=== PATIENT | female | born 1985 | race Hispanic/Latino ===

== ENCOUNTER → 2022-10-05 | Outpatient (CLI) | payer BC | END | disposition home or self-care (01) | LOC: SHCH 08:49 → EDUNIT# 09:00 | PROVIDERS: ATTEND Internal Medicine Cardiovascular Disease | DX: I08.1 Rheumatic disorders of both mitral and tricuspid valves (principal); I48.0 Paroxysmal atrial fibrillation; Z79.01 Long term (current) use of anticoagulants | CPT/HCPCS: 93306 ==

== ENCOUNTER 2022-10-17 07:28 | Day surgery (SDC) | payer BC ==
[2022-10-15 15:21] LABS: BASOPHILS % (AUTO) 0.4 % (0.0-5.0); EOSINOPHILS % (AUTO) 3.4 % (0.0-8.0); HEMATOCRIT 39.2 % (36-48); LYMPHOCYTES % (AUTO) 23.2 % (21.0-51.0); MEAN CORPUSCULAR HEMOGLOBIN 26.3 pg (27.0-33.0); MEAN CORPUSCULAR HGB CONC 31.6 g/dL (32.0-36.0); MEAN CORPUSCULAR VOLUME 83.1 fL (79-99); MONOCYTES % (AUTO) 10.1 % (3.0-13.0); NEUTROPHILS % (AUTO) 62.6 % (40.0-77.0); PLATELET COUNT (AUTO) 225 K/uL (130-400); RED BLOOD CELL COUNT(AUTO) 4.72 MIL/uL (4.00-5.50); RED CELL DISTRIBUTION WIDTH 12.9 % (11.0-15.5); WHITE BLOOD COUNT (AUTO) 9.3 K/uL (4.8-10.8)
[2022-10-15 15:42] LABS: CREATININE 0.5 mg/dL (0.5-1.5); POTASSIUM 4.7 mmol/L (3.5-5.1)
[2022-10-16 10:11] VITALS: BP 137/62
[~2022-10-17] VITALS: Ht 167.6 cm; Wt 77.4 kg
[2022-10-17] VITALS (21 sets, daily range): BP systolic 116–174; BP diastolic 50–78
[~2022-10-17 07:28] MED LIST: 0.9% NACL 500ML IV.SOLN 500 ML IV SCH; APIX5TAB PO; METH-387 PO; METO50TA18 PO
[2022-10-17] MEDS ORDERED: LIDOCAINE HCL 2% VISCOUS 15 ML UDCUP ONE (08:56)
[2022-10-17] MEDS ORDERED: FENTANYL CITRATE PF 50 MCG/1 ML 2ML VIAL ONE (08:57)
[2022-10-17] MEDS ORDERED: MIDAZOLAM HCL 1 MG/ML 2ML VIAL ONE (08:58)
[2022-10-17] MEDS ORDERED: 0.9%NACL 1000ML 1,000 ML IV ONE (09:02)
[2022-10-17] MEDS ORDERED: NALOXONE HCL 0.4 MG/1 ML ML ONE (12:40)
[2022-10-17] MEDS ORDERED: FLUMAZENIL 0.1MG/1ML 5ML VIAL IV ONE (12:40)
== END 2022-10-17 14:55 | disposition home or self-care (01) ==
LOC: DAH 07:28
PROVIDERS: ATTEND Internal Medicine Cardiovascular Disease
DX: I07.1 Rheumatic tricuspid insufficiency (principal); Q21.19 Other specified atrial septal defect; I48.0 Paroxysmal atrial fibrillation; I27.20 Pulmonary hypertension, unspecified; E05.00 Thyrotoxicosis with diffuse goiter without thyrotoxic crisis or storm; I47.29 Other ventricular tachycardia; Z90.49 Acquired absence of other specified parts of digestive tract; Z82.49 Family history of ischemic heart disease and other diseases of the circulatory system; Z83.3 Family history of diabetes mellitus; Z83.438 Family history of other disorder of lipoprotein metabolism and other lipidemia; Z72.89 Other problems related to lifestyle; Z88.0 Allergy status to penicillin; Z98.890 Other specified postprocedural states; Z86.16 Personal history of COVID-19
CPT/HCPCS: 80048; 84703; 85025; 36415; 93005; 93312; A4223 ×3; J3010; J7030; J2250; A4615; A4215; A7002; A4222; A4221; A4663; A4216; A4606; 96374; 99152; J2310; J3490

== ENCOUNTER → 2023-02-13 | Outpatient (CLI) | payer BC ==
[~2023-02-13] MED LIST changes: -0.9% NACL 500ML IV.SOLN 500 ML IV SCH
== END | disposition home or self-care (01) ==
LOC: RAH 12:47
PROVIDERS: ATTEND Internal Medicine
DX: E05.00 Thyrotoxicosis with diffuse goiter without thyrotoxic crisis or storm (principal)
CPT/HCPCS: 76536

== ENCOUNTER → 2024-05-14 | Outpatient (CLI) | payer BC | END | disposition home or self-care (01) | LOC: CANPRECLI → SHCH 14:36 | PROVIDERS: ATTEND Internal Medicine Cardiovascular Disease | DX: R01.1 Cardiac murmur, unspecified (principal) | CPT/HCPCS: 93306 ==